=== PATIENT | female | born 1955 | race Hispanic/Latino ===

== ENCOUNTER → 2022-12-25 | Day surgery (SDC) | payer OTHER ==
[~2022-12-25] MED LIST: ATROPINE SULF 1 MG/10 ML SYR IV ONE; HYDRALAZINE HCL 20 MG/ML VIAL ONE; LIDOCAINE 2% MPF 5 ML VIAL ONE; METOPROLOL TARTRATE 5 MG/5 ML INJ IV ONE; NA CHLORIDE 0.9% 500 ML ONE; propofoL 200 MG/20 ML VIAL IV ONE
--- NOTE | 2022-12-26 11:12 | TEE ---
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 TRANSESOPHAGEAL ECHOCARDIOGRAM PROBE INSERTED, NO DIFFICULTY 2. NORMAL LEFT VENTRICULAR EJECTION FRACTION 55-60% 3. CALCIFIED AORTIC VALVE WITH LIKELY MILD AORTIC STENOSIS. NO MEMBRANE IS SEEN. TECHNOLOGIST: ROSANNA COLEMAN
== END | disposition home or self-care (01) ==
LOC: EKG 07:45
PROVIDERS: ATTEND Internal Medicine
DX: I35.0 Nonrheumatic aortic (valve) stenosis (principal); I25.10 Atherosclerotic heart disease of native coronary artery without angina pectoris; I70.223 Atherosclerosis of native arteries of extremities with rest pain, bilateral legs; I65.23 Occlusion and stenosis of bilateral carotid arteries; I12.9 Hypertensive chronic kidney disease with stage 1 through stage 4 chronic kidney disease, or unspecified chronic kidney disease; E11.22 Type 2 diabetes mellitus with diabetic chronic kidney disease; N18.30 Chronic kidney disease, stage 3 unspecified; K21.9 Gastro-esophageal reflux disease without esophagitis; E78.2 Mixed hyperlipidemia; Z95.5 Presence of coronary angioplasty implant and graft; Z87.891 Personal history of nicotine dependence; Z79.899 Other long term (current) drug therapy; Z88.8 Allergy status to other drugs, medicaments and biological substances
CPT/HCPCS: 93312; J2704; J2001; J7040; J0360; J0461